=== PATIENT | male | born 1975 | race Hispanic/Latino ===

== ENCOUNTER 2024-09-25 15:52 | Emergency (ER) | payer OTHER ==
[~2024-09-25] VITALS: Ht 167.6 cm; Wt 133.4 kg
[2024-09-25 16:00] VITALS: PULSE 70; RESP 20; TEMP 98.2; O2SAT 97
[2024-09-25] MEDS ORDERED: LIDOCAINE HCL 2% LOCAL 20 ML VIAL ONE (16:23)
[2024-09-25] MEDS: LIDOCAINE HCL 2% LOCAL 20 ML VIAL INJ STA (16:36)
== END 2024-09-25 17:11 | disposition home or self-care (01) ==
LOC: FSED 15:55
DX: S01.511A Laceration without foreign body of lip, initial encounter (principal); W54.1XXA Struck by dog, initial encounter; Y92.89 Other specified places as the place of occurrence of the external cause; I10 Essential (primary) hypertension
CPT/HCPCS: 12011; 99284; J2003